=== PATIENT | male | born 1990 | race Caucasian/White ===

== ENCOUNTER 2022-04-06 14:00 | Inpatient (IN) | payer OTHER ==
[~2022-04-06] VITALS: Ht 175.3 cm; Wt 90.3 kg
[2022-04-06 17:15] VITALS: BP 115/69
[2022-04-06 20:10] VITALS: BP 117/56
[2022-04-06] MEDS ORDERED: SODIUM CL IRRIG SOLN BOTTLE 250 ML IRRIG ONE (21:32)
[2022-04-06] MEDS: ETHYL ALCOHOL 62% ANTISEPTIC NASAL SANITIZER 0.6 ML AMPUL NASAL SCH (21:34)
[2022-04-06] MEDS: METHOCARBAMOL 750 MG TABLET PO SCH (21:34)
[2022-04-06] MEDS: SIMVASTATIN 20 MG TABLET PO SCH (21:35)
[2022-04-06] MEDS: -LIDODERM PATCH NOTE- MISC SCH (21:35)
[2022-04-07 05:41] LABS: BASOPHILS % (AUTO) 0.6 % (0.0-2.0); EOSINOPHILS % (AUTO) 1.3 % (1.0-6.0); HEMATOCRIT 34.7 % (41-53); HEMOGLOBIN 11.9 g/dL (13.5-17.5); LYMPHOCYTES # (AUTO) 1.9 K/uL (1.0-4.8); LYMPHOCYTES % (AUTO) 19.6 % (22.0-44.0); MEAN CORPUSCULAR HEMOGLOBIN 30.7 pg (26.0-34.0); MEAN CORPUSCULAR HGB CONC 34.3 G/dL (31.0-37.0); MEAN CORPUSCULAR VOLUME 90 fL (80-100); MONOCYTES % (AUTO) 9.7 % (2.0-9.0); NEUTROPHILS # (AUTO) 6.8 K/uL (1.8-7.7); NEUTROPHILS % (AUTO) 68.8 % (40.0-70.0); PLATELET COUNT (AUTO) 647 K/uL (150-450); RED BLOOD CELL COUNT(AUTO) 3.88 MIL/uL (4.50-5.90); RED CELL DISTRIBUTION WIDTH 13.5 % (11.5-14.5)
[2022-04-07 05:55] LABS: ALANINE AMINOTRANSFERASE 61 U/L (12-78); ALBUMIN 3.2 g/dL (3.4-5.0); ALKALINE PHOSPHATASE 99 U/L (46-116); ANION GAP 6 mmol/L (8-16); ASPARTATE AMINOTRANSFERASE 31 U/L (15-37); BILIRUBIN,TOTAL 0.5 mg/dL (0.1-1.0); CALCIUM, TOTAL 9.5 mg/dL (8.8-10.5); CARBON DIOXIDE 27 mmol/L (22-29); CHLORIDE 101 mmol/L (98-107); CREATININE 0.88 mg/dL (0.60-1.30); GLUCOSE,RANDOM 107 mg/dL (70-110); POTASSIUM 3.9 mmol/L (3.5-5.1); SODIUM SERUM 134 mmol/L (136-145); TOTAL PROTEIN, SERUM 7.7 g/dL (6.4-8.2); UREA NITROGEN, BLOOD 16 mg/dL (7-18)
[2022-04-07 06:06] LABS: GLOMERULAR FILTR. RATE CALC > 60 mL/min (>60)
[2022-04-07] MEDS ORDERED: LIDOCAINE 5% 36 GM OINTMENT TP SCH (09:00)
[2022-04-07] MEDS: METHOCARBAMOL 750 MG TABLET PO SCH ×3 (09:02→20:57)
[2022-04-07] MEDS: ENOXAPARIN SODIUM 40 MG/0.4 ML PF SYRINGE SQ SCH (09:02)
[2022-04-07] MEDS: ETHYL ALCOHOL 62% ANTISEPTIC NASAL SANITIZER 0.6 ML AMPUL NASAL SCH ×2 (09:02→20:57)
[2022-04-07 09:03] VITALS: BP 114/68
[2022-04-07] MEDS: HYDROCODONE/ACETAMINOPHEN 10-325 MG TABLET PO PRN ×2 (09:03→15:00)
[2022-04-07] MEDS: LIDOCAINE 5% TRANSDERMAL PATCH TD SCH (09:13)
[2022-04-07 20:00] VITALS: BP 123/69
[2022-04-07] MEDS: SIMVASTATIN 20 MG TABLET PO SCH (20:57)
[2022-04-07] MEDS: -LIDODERM PATCH NOTE- MISC SCH (20:59)
[2022-04-08] MEDS: HYDROCODONE/ACETAMINOPHEN 5-325 MG TABLET PO PRN ×2 (01:14→08:32)
[2022-04-08 08:30] VITALS: BP 140/74
[2022-04-08] MEDS: METHOCARBAMOL 750 MG TABLET PO SCH ×3 (08:32→20:33)
[2022-04-08] MEDS: ETHYL ALCOHOL 62% ANTISEPTIC NASAL SANITIZER 0.6 ML AMPUL NASAL SCH ×2 (09:00→20:33)
[2022-04-08] MEDS: LIDOCAINE 5% TRANSDERMAL PATCH TD SCH (09:03)
[2022-04-08] MEDS: ENOXAPARIN SODIUM 40 MG/0.4 ML PF SYRINGE SQ SCH (09:09)
[2022-04-08] MEDS: HYDROCODONE/ACETAMINOPHEN 10-325 MG TABLET PO PRN (11:18)
[2022-04-08 11:22] VITALS: BP 114/54
[2022-04-08] MEDS ORDERED: SODIUM CL IRRIG SOLN BOTTLE 250 ML IRRIG ONE (11:40)
[2022-04-08] MEDS: SIMVASTATIN 20 MG TABLET PO SCH (20:33)
[2022-04-08] MEDS: -LIDODERM PATCH NOTE- MISC SCH (20:36)
[2022-04-08 21:00] VITALS: BP 111/57
[2022-04-09 07:35] VITALS: BP 114/59
[2022-04-09] MEDS: DOCUSATE SODIUM 100 MG CAPSULE PO SCH ×2 (08:10→20:57)
[2022-04-09] MEDS: METHOCARBAMOL 750 MG TABLET PO SCH ×3 (08:10→20:56)
[2022-04-09] MEDS: LIDOCAINE 5% TRANSDERMAL PATCH TD SCH (08:11)
[2022-04-09] MEDS: ENOXAPARIN SODIUM 40 MG/0.4 ML PF SYRINGE SQ SCH (08:11)
[2022-04-09] MEDS: ETHYL ALCOHOL 62% ANTISEPTIC NASAL SANITIZER 0.6 ML AMPUL NASAL SCH ×2 (08:12→20:56)
[2022-04-09] MEDS: HYDROCODONE/ACETAMINOPHEN 10-325 MG TABLET PO PRN (08:12)
[2022-04-09] MEDS: ACETAMINOPHEN 325 MG TABLET PO PRN (13:35)
[2022-04-09] MEDS: SENNA 187 MG TABLET PO PRN (20:56)
[2022-04-09] MEDS: SIMVASTATIN 20 MG TABLET PO SCH (20:56)
[2022-04-09] MEDS: -LIDODERM PATCH NOTE- MISC SCH ×2 (21:04→21:05)
[2022-04-09 21:06] VITALS: BP 123/65
[2022-04-10 08:03] VITALS: BP 136/68
[2022-04-10] MEDS: ENOXAPARIN SODIUM 40 MG/0.4 ML PF SYRINGE SQ SCH (09:31)
[2022-04-10] MEDS: DOCUSATE SODIUM 100 MG CAPSULE PO SCH ×2 (09:31→21:07)
[2022-04-10] MEDS: ETHYL ALCOHOL 62% ANTISEPTIC NASAL SANITIZER 0.6 ML AMPUL NASAL SCH ×2 (09:31→21:07)
[2022-04-10] MEDS: METHOCARBAMOL 750 MG TABLET PO SCH ×3 (09:31→21:07)
[2022-04-10] MEDS: LIDOCAINE 5% TRANSDERMAL PATCH TD SCH ×2 (09:32→10:13)
[2022-04-10] MEDS: MULTIVITAMINS WITH MINERALS, THERAPEUTIC TABLET PO SCH (12:08)
[2022-04-10] MEDS: ASCORBIC ACID 500 MG TABLET PO SCH (12:08)
[2022-04-10 21:00] VITALS: BP 122/68
[2022-04-10] MEDS: -LIDODERM PATCH NOTE- MISC SCH ×2 (21:07)
[2022-04-10] MEDS: SIMVASTATIN 20 MG TABLET PO SCH (21:08)
[2022-04-10] MEDS: SENNA 187 MG TABLET PO PRN (21:08)
[2022-04-11 08:10] VITALS: BP 117/71
[2022-04-11] MEDS: ASCORBIC ACID 500 MG TABLET PO SCH (10:25)
[2022-04-11] MEDS: MULTIVITAMINS WITH MINERALS, THERAPEUTIC TABLET PO SCH (10:25)
[2022-04-11] MEDS: DOCUSATE SODIUM 100 MG CAPSULE PO SCH ×2 (10:25→20:40)
[2022-04-11] MEDS: ETHYL ALCOHOL 62% ANTISEPTIC NASAL SANITIZER 0.6 ML AMPUL NASAL SCH ×2 (10:25→20:40)
[2022-04-11] MEDS: METHOCARBAMOL 750 MG TABLET PO SCH ×3 (10:25→21:45)
[2022-04-11] MEDS: ENOXAPARIN SODIUM 40 MG/0.4 ML PF SYRINGE SQ SCH (10:26)
[2022-04-11] MEDS: LIDOCAINE 5% TRANSDERMAL PATCH TD SCH ×2 (10:27)
[2022-04-11] MEDS: ACETAMINOPHEN 325 MG TABLET PO PRN ×2 (10:50→15:11)
[2022-04-11] MEDS: OxyCODONE HCL/ACETAMINOPHEN 5-325 MG TABLET PO PRN ×3 (11:01→20:41)
[2022-04-11] MEDS: SIMVASTATIN 20 MG TABLET PO SCH (20:40)
[2022-04-11 20:41] VITALS: BP 115/65
[2022-04-11] MEDS: -LIDODERM PATCH NOTE- MISC SCH ×2 (20:42)
[2022-04-12 06:27] LABS: BASOPHILS % (AUTO) 0.3 % (0.0-2.0); EOSINOPHILS % (AUTO) 2.5 % (1.0-6.0); HEMATOCRIT 34.9 % (41-53); HEMOGLOBIN 11.9 g/dL (13.5-17.5); LYMPHOCYTES % (AUTO) 27.8 % (22.0-44.0); MEAN CORPUSCULAR HGB CONC 34.2 G/dL (31.0-37.0); MEAN CORPUSCULAR VOLUME 91 fL (80-100); MONOCYTES # (AUTO) 0.8 K/uL (0.1-1.0); MONOCYTES % (AUTO) 11.6 % (2.0-9.0); NEUTROPHILS # (AUTO) 4.1 K/uL (1.8-7.7); NEUTROPHILS % (AUTO) 57.8 % (40.0-70.0); PLATELET COUNT (AUTO) 540 K/uL (150-450); RED BLOOD CELL COUNT(AUTO) 3.85 MIL/uL (4.50-5.90); RED CELL DISTRIBUTION WIDTH 13.4 % (11.5-14.5)
[2022-04-12 06:44] LABS: ANION GAP 13 mmol/L (8-16); CARBON DIOXIDE 27 mmol/L (22-29); CHLORIDE 98 mmol/L (98-107); CREATININE 0.97 mg/dL (0.60-1.30); GLUCOSE,RANDOM 101 mg/dL (70-110); SODIUM SERUM 138 mmol/L (136-145); UREA NITROGEN, BLOOD 17 mg/dL (7-18)
[2022-04-12 06:45] LABS: ALANINE AMINOTRANSFERASE 62 U/L (12-78); ALBUMIN 3.3 g/dL (3.4-5.0); ALKALINE PHOSPHATASE 92 U/L (46-116); ASPARTATE AMINOTRANSFERASE 35 U/L (15-37); BILIRUBIN,TOTAL 0.2 mg/dL (0.1-1.0); C-REACTIVE PROTEIN QUANT 1.05 mg/dL (0.00-0.30); CALCIUM, TOTAL 9.4 mg/dL (8.8-10.5); TOTAL PROTEIN, SERUM 7.2 g/dL (6.4-8.2)
[2022-04-12 06:59] LABS: GLOMERULAR FILTR. RATE CALC > 60 mL/min (>60)
[2022-04-12 07:45] VITALS: BP 129/66
[2022-04-12] MEDS: ETHYL ALCOHOL 62% ANTISEPTIC NASAL SANITIZER 0.6 ML AMPUL NASAL SCH ×2 (08:41→20:44)
[2022-04-12] MEDS: DOCUSATE SODIUM 100 MG CAPSULE PO SCH ×2 (08:41→20:44)
[2022-04-12] MEDS: ASCORBIC ACID 500 MG TABLET PO SCH (08:42)
[2022-04-12] MEDS: MULTIVITAMINS WITH MINERALS, THERAPEUTIC TABLET PO SCH (08:42)
[2022-04-12] MEDS: ENOXAPARIN SODIUM 40 MG/0.4 ML PF SYRINGE SQ SCH (08:42)
[2022-04-12] MEDS: METHOCARBAMOL 750 MG TABLET PO SCH ×3 (08:42→20:44)
[2022-04-12] MEDS: LIDOCAINE 5% TRANSDERMAL PATCH TD SCH ×2 (08:43)
[2022-04-12 08:44] LABS: ERYTHROCYTE SEDIMENTATION RATE 72 MM/HR (0-15)
[2022-04-12] MEDS: OxyCODONE HCL/ACETAMINOPHEN 5-325 MG TABLET PO PRN ×3 (08:44→20:45)
[2022-04-12] MEDS: ACETAMINOPHEN 325 MG TABLET PO PRN (15:14)
[2022-04-12 20:44] VITALS: BP 111/58
[2022-04-12] MEDS: -LIDODERM PATCH NOTE- MISC SCH ×2 (20:44)
[2022-04-12] MEDS: SIMVASTATIN 20 MG TABLET PO SCH (20:44)
[2022-04-13 08:30] VITALS: BP 108/59
[2022-04-13] MEDS: MULTIVITAMINS WITH MINERALS, THERAPEUTIC TABLET PO SCH (08:57)
[2022-04-13] MEDS: DOCUSATE SODIUM 100 MG CAPSULE PO SCH ×2 (08:57→21:08)
[2022-04-13] MEDS: METHOCARBAMOL 750 MG TABLET PO SCH ×3 (08:58→21:08)
[2022-04-13] MEDS: ENOXAPARIN SODIUM 40 MG/0.4 ML PF SYRINGE SQ SCH (08:58)
[2022-04-13] MEDS: ASCORBIC ACID 500 MG TABLET PO SCH (08:58)
[2022-04-13] MEDS: LIDOCAINE 5% TRANSDERMAL PATCH TD SCH ×2 (08:59)
[2022-04-13] MEDS: OxyCODONE HCL/ACETAMINOPHEN 5-325 MG TABLET PO PRN ×3 (09:00→21:10)
[2022-04-13] MEDS: ETHYL ALCOHOL 62% ANTISEPTIC NASAL SANITIZER 0.6 ML AMPUL NASAL SCH ×2 (09:00→21:08)
[2022-04-13 20:10] VITALS: BP 116/66
[2022-04-13] MEDS: SIMVASTATIN 20 MG TABLET PO SCH (21:07)
[2022-04-13 21:10] VITALS: BP 109/58
[2022-04-13] MEDS: -LIDODERM PATCH NOTE- MISC SCH ×2 (21:10)
[2022-04-13] MEDS ORDERED: SODIUM CL IRRIG SOLN BOTTLE 250 ML IRRIG ONE (21:28)
[2022-04-14] VITALS (8 sets, daily range): BP systolic 100–129; BP diastolic 49–67
[2022-04-14] MEDS ORDERED: METH-812 PO (04:34)
[2022-04-14] MEDS ORDERED: ASCO500 PO (04:34)
[2022-04-14] MEDS ORDERED: PERCT PO (04:34)
[2022-04-14] MEDS ORDERED: DOCU-385 PO (04:34)
[2022-04-14] MEDS ORDERED: LIDO700A15 TP (04:34)
[2022-04-14] MEDS ORDERED: ACET-2247 PO (04:34)
[2022-04-14] MEDS ORDERED: MULT-248 PO (04:34)
[2022-04-14] MEDS ORDERED: SIMV-260 PO (04:34)
[2022-04-14] MEDS: DOCUSATE SODIUM 100 MG CAPSULE PO SCH ×2 (08:17→21:15)
[2022-04-14] MEDS: MULTIVITAMINS WITH MINERALS, THERAPEUTIC TABLET PO SCH (08:17)
[2022-04-14] MEDS: ETHYL ALCOHOL 62% ANTISEPTIC NASAL SANITIZER 0.6 ML AMPUL NASAL SCH ×2 (08:17→21:16)
[2022-04-14] MEDS: METHOCARBAMOL 750 MG TABLET PO SCH ×3 (08:17→21:16)
[2022-04-14] MEDS: ASCORBIC ACID 500 MG TABLET PO SCH (08:17)
[2022-04-14] MEDS: OxyCODONE HCL/ACETAMINOPHEN 5-325 MG TABLET PO PRN ×2 (08:18→21:17)
[2022-04-14] MEDS: ENOXAPARIN SODIUM 40 MG/0.4 ML PF SYRINGE SQ SCH (08:18)
[2022-04-14] MEDS: LIDOCAINE 5% TRANSDERMAL PATCH TD SCH ×2 (08:18→08:19)
[2022-04-14] MEDS ORDERED: SODIUM CHLORIDE 0.9% 100 ML ONE (10:51)
[2022-04-14] MEDS ORDERED: IOHEXOL 350 MG/ML 100 ML VIAL ONE (10:51)
[2022-04-14] MEDS: SIMVASTATIN 20 MG TABLET PO SCH (21:16)
[2022-04-14] MEDS: SENNA 187 MG TABLET PO PRN (21:16)
[2022-04-14] MEDS: -LIDODERM PATCH NOTE- MISC SCH ×2 (21:18)
[2022-04-15 04:55] VITALS: BP 99/65
[2022-04-15 08:30] VITALS: BP 109/69
[2022-04-15] MEDS: ASCORBIC ACID 500 MG TABLET PO SCH (08:49)
[2022-04-15] MEDS: MULTIVITAMINS WITH MINERALS, THERAPEUTIC TABLET PO SCH (08:49)
[2022-04-15] MEDS: DOCUSATE SODIUM 100 MG CAPSULE PO SCH ×2 (08:49→20:33)
[2022-04-15] MEDS: ENOXAPARIN SODIUM 40 MG/0.4 ML PF SYRINGE SQ SCH (08:50)
[2022-04-15] MEDS: METHOCARBAMOL 750 MG TABLET PO SCH ×3 (08:50→20:33)
[2022-04-15] MEDS: ETHYL ALCOHOL 62% ANTISEPTIC NASAL SANITIZER 0.6 ML AMPUL NASAL SCH ×2 (08:50→20:33)
[2022-04-15] MEDS: LIDOCAINE 5% TRANSDERMAL PATCH TD SCH ×2 (08:51)
[2022-04-15] MEDS: OxyCODONE HCL/ACETAMINOPHEN 5-325 MG TABLET PO PRN ×3 (08:54→19:45)
[2022-04-15] MEDS ORDERED: ASCO500 PO (09:54)
[2022-04-15] MEDS ORDERED: LIDO700A30 TD (09:54)
[2022-04-15] MEDS ORDERED: ACET325T51 PO (09:54)
[2022-04-15] MEDS ORDERED: SENN-187 PO (09:54)
[2022-04-15] MEDS ORDERED: DOCU-385 PO (09:54)
[2022-04-15] MEDS ORDERED: MULT-1239 PO (09:54)
[2022-04-15] MEDS ORDERED: SIMV-43 PO (09:54)
[2022-04-15] MEDS ORDERED: METH-812 PO (09:54)
[2022-04-15 12:50] VITALS: BP 111/65
[2022-04-15 17:47] VITALS: BP 110/61
[2022-04-15 19:45] VITALS: BP 117/64
[2022-04-15] MEDS: -LIDODERM PATCH NOTE- MISC SCH ×2 (19:49)
[2022-04-15] MEDS: SIMVASTATIN 20 MG TABLET PO SCH (20:33)
[2022-04-15] MEDS: SENNA 187 MG TABLET PO PRN (20:33)
[2022-04-15 23:43] VITALS: BP 109/54
[2022-04-16 05:27] VITALS: BP 101/61
[2022-04-16 08:10] VITALS: BP 108/62
[2022-04-16] MEDS: ASCORBIC ACID 500 MG TABLET PO SCH (08:30)
[2022-04-16] MEDS: ACETAMINOPHEN 325 MG TABLET PO PRN (08:30)
[2022-04-16] MEDS: ETHYL ALCOHOL 62% ANTISEPTIC NASAL SANITIZER 0.6 ML AMPUL NASAL SCH (08:31)
[2022-04-16] MEDS: DOCUSATE SODIUM 100 MG CAPSULE PO SCH (08:31)
[2022-04-16] MEDS: ENOXAPARIN SODIUM 40 MG/0.4 ML PF SYRINGE SQ SCH (08:31)
[2022-04-16] MEDS: MULTIVITAMINS WITH MINERALS, THERAPEUTIC TABLET PO SCH (08:31)
[2022-04-16] MEDS: METHOCARBAMOL 750 MG TABLET PO SCH (08:31)
[2022-04-16] MEDS: LIDOCAINE 5% TRANSDERMAL PATCH TD SCH ×2 (08:32)
[2022-04-16] MEDS: OxyCODONE HCL/ACETAMINOPHEN 5-325 MG TABLET PO PRN (10:06)
[2022-04-16] MEDS ORDERED: OXYC-38 PO (10:56)
== END 2022-04-16 09:50 | disposition home or self-care (01) | DRG 552 ==
LOC: 2WR 17:10
PROVIDERS: ADMIT Physical Medicine & Rehabilitation; ATTEND Physical Medicine & Rehabilitation
DX: S12.500A Unspecified displaced fracture of sixth cervical vertebra, initial encounter for closed fracture (principal); S22.058A Other fracture of T5-T6 vertebra, initial encounter for closed fracture; S22.068A Other fracture of T7-T8 thoracic vertebra, initial encounter for closed fracture; S22.41XA Multiple fractures of ribs, right side, initial encounter for closed fracture; E46 Unspecified protein-calorie malnutrition; E87.1 Hypo-osmolality and hyponatremia; J90 Pleural effusion, not elsewhere classified; S27.329A Contusion of lung, unspecified, initial encounter; D75.839 Thrombocytosis, unspecified; F43.20 Adjustment disorder, unspecified; S12.690A Other displaced fracture of seventh cervical vertebra, initial encounter for closed fracture; R07.89 Other chest pain; D64.9 Anemia, unspecified; T14.8XXA Other injury of unspecified body region, initial encounter; F32.A Depression, unspecified; K59.03 Drug induced constipation; T40.2X5A Adverse effect of other opioids, initial encounter; Z87.891 Personal history of nicotine dependence; Z98.1 Arthrodesis status; V29.9XXA Motorcycle rider (driver) (passenger) injured in unspecified traffic accident, initial encounter; Y93.89 Activity, other specified; Y92.89 Other specified places as the place of occurrence of the external cause; Y99.8 Other external cause status; Z68.29 Body mass index [BMI] 29.0-29.9, adult
CPT/HCPCS: 71045; 71275; 80053; 84484; 85025; 85651; 86140; 87081; 93005; 93306; 93970; 97110; 97112; 97116; 97150; 97161; 97166; 97530; 97535; 99366; J1650; J7050; Q9967; 36415-L1; 36415-TC